=== PATIENT | female | born 1975 | race Caucasian/White ===

== ENCOUNTER 2018-10-01 06:11 | Emergency (ER) | payer MEDICAID ==
[~2018-10-01] VITALS: Ht 162.6 cm; Wt 58.2 kg
[2018-10-01] MEDS ORDERED: morphine 4 MG/ML inj SYRINge IV PRN (06:25)
[2018-10-01] MEDS ORDERED: ondansetron/PF 4mg/2ml inj IV ONE (06:25)
[2018-10-01 06:58] LABS: BASOPHILS % (AUTO) 0.6 % (0-1); EOSINOPHILS # (AUTO) 0.1 X10'3 (0-0.9); EOSINOPHILS % (AUTO) 2.4 % (0-6); HEMATOCRIT 44.1 % (35.0-45.0); HEMOGLOBIN 14.4 g/dl (12.0-16.0); LYMPHOCYTES # (AUTO) 1.4 X10'3 (1.1-4.8); LYMPHOCYTES % (AUTO) 38.7 % (21-51); MEAN CORPUSCULAR HEMOGLOBIN 29.6 PG (27.0-31.0); MEAN CORPUSCULAR HGB CONC 32.7 g/dL (33.0-36.5); MEAN CORPUSCULAR VOLUME 90.5 FL (78-98); MEAN PLATELET VOLUME 8.3 FL (7.4-10.4); MONOCYTES # (AUTO) 0.2 X10'3 (0-0.9); MONOCYTES % (AUTO) 5.4 % (2-12); NEUTROPHILS # (AUTO) 1.9 X10'3 (1.8-7.7); NEUTROPHILS % (AUTO) 52.9 % (42-75); PLATELET COUNT 222 X10'3 (140-440); RED BLOOD COUNT 4.87 X10'6 (4.20-5.60); WHITE BLOOD COUNT 3.6 X10'3 (4.5-11.0)
[2018-10-01 06:59] LABS: ALANINE AMINOTRANSFERASE 33 U/L (12-78); ALBUMIN 3.7 G/DL (3.4-5.0); ALKALINE PHOSPHATASE 93 IU/L (46-116); ANION GAP 9 (8-16); ASPARTATE AMINO TRANSFERASE 36 U/L (10-37); BILIRUBIN,TOTAL 0.4 MG/DL (0.1-1.0); BLOOD UREA NITROGEN 12 MG/DL (7-18); BUN/CREATININE RATIO 15.6 (6.6-38.0); CALCIUM 9.2 MG/DL (8.5-10.1); CHLORIDE 108 MMOL/L (99-107); CREATININE 0.77 MG/DL (0.40-0.90); GLUCOSE 69 MG/DL (70-104); LIPASE 62 U/L (73-393); POTASSIUM 4.4 MMOL/L (3.5-5.1); SODIUM 146 MMOL/L (135-145); TOTAL CARBON DIOXIDE 29.3 MMOL/L (24-32); TOTAL PROTEIN 7.5 G/DL (6.4-8.2); eGFR 81 ML/MIN
[2018-10-01] MEDS ORDERED: iohexol 350MG/ML 100ml bottle IV ONE (07:11)
[2018-10-01] MEDS ORDERED: normal saline 1000ml 1,000 ML IV ONE (07:25)
--- NOTE | 2018-10-01 08:21 | NUR ---
MD AWARE OF LOW BP AND LOW HEART RATE.
[2018-10-01] MEDS ORDERED: MAGN296S50 PO (09:43)
[2018-10-01 09:45] VITALS: BP 101/67
== END 2018-10-01 09:51 | disposition home or self-care (01) ==
LOC: ER 06:12
DX: R10.12 Left upper quadrant pain (principal); K59.00 Constipation, unspecified; Z90.49 Acquired absence of other specified parts of digestive tract; Z90.710 Acquired absence of both cervix and uterus; Z98.84 Bariatric surgery status; Z88.2 Allergy status to sulfonamides; Z79.899 Other long term (current) drug therapy
CPT/HCPCS: 36415; 71275; 74174; 80053; 83690; 85025; 96374; 96375; 99284; J2270; J2405; J7030; Q9967

== ENCOUNTER 2018-11-01 07:41 | Emergency (ER) | payer MEDICAID ==
[~2018-11-01] VITALS: Ht 162.6 cm; Wt 58.2 kg
[~2018-11-01 07:41] MED LIST: MAGN296S50 PO
[2018-11-01 07:49] VITALS: BP 98/61
== END 2018-11-01 09:06 | disposition home or self-care (01) ==
LOC: ER 07:42
DX: E16.2 Hypoglycemia, unspecified (principal); Z86.73 Personal history of transient ischemic attack (TIA), and cerebral infarction without residual deficits; Z90.49 Acquired absence of other specified parts of digestive tract; Z98.890 Other specified postprocedural states; Z90.710 Acquired absence of both cervix and uterus; Z98.84 Bariatric surgery status; Z88.2 Allergy status to sulfonamides
CPT/HCPCS: 82948; 99282

== ENCOUNTER 2019-02-16 12:23 | Emergency (ER) | payer MEDICAID ==
[~2019-02-16] VITALS: Ht 162.6 cm; Wt 60.9 kg
[2019-02-16 13:08] VITALS: BP 103/67
[2019-02-16] MEDS ORDERED: AZIT250T83 PO (13:16)
== END 2019-02-16 13:34 | disposition home or self-care (01) ==
LOC: ER 12:23
DX: J32.9 Chronic sinusitis, unspecified (principal); Z90.49 Acquired absence of other specified parts of digestive tract; Z90.710 Acquired absence of both cervix and uterus; Z98.890 Other specified postprocedural states; Z86.73 Personal history of transient ischemic attack (TIA), and cerebral infarction without residual deficits; Z98.84 Bariatric surgery status; Z88.2 Allergy status to sulfonamides; Z79.899 Other long term (current) drug therapy
CPT/HCPCS: 99283

== ENCOUNTER 2019-04-02 09:38 | Emergency (ER) | payer MEDICAID ==
[~2019-04-02] VITALS: Ht 162.6 cm; Wt 50.0 kg
[~2019-04-02 09:38] MED LIST changes: -MAGN296S50 PO; +MAGN296S70 PO
[2019-04-02 09:42] VITALS: BP 107/72
== END 2019-04-02 10:37 | disposition home or self-care (01) ==
LOC: ER 09:38
DX: R19.7 Diarrhea, unspecified (principal); Z86.73 Personal history of transient ischemic attack (TIA), and cerebral infarction without residual deficits; Z90.49 Acquired absence of other specified parts of digestive tract; Z90.710 Acquired absence of both cervix and uterus; Z98.84 Bariatric surgery status; Z88.2 Allergy status to sulfonamides
CPT/HCPCS: 99281

== ENCOUNTER 2019-04-17 11:15 | Emergency (ER) | payer MEDICAID ==
[~2019-04-17] VITALS: Ht 162.6 cm; Wt 63.4 kg
[2019-04-17] MEDS ORDERED: ondansetron/PF 4mg/2ml inj IV ONE (12:15)
[2019-04-17] MEDS ORDERED: normal saline 1000ML IV soln IVB ONE (12:15)
[2019-04-17 12:36] LABS: BASOPHILS % (AUTO) 0.2 % (0-1); EOSINOPHILS % (AUTO) 0.1 % (0-6); HEMATOCRIT 41.5 % (35.0-45.0); HEMOGLOBIN 13.9 g/dl (12.0-16.0); LYMPHOCYTES # (AUTO) 0.5 X10'3 (1.1-4.8); LYMPHOCYTES % (AUTO) 4.9 % (21-51); MEAN CORPUSCULAR HEMOGLOBIN 30.1 PG (27.0-31.0); MEAN CORPUSCULAR HGB CONC 33.4 g/dL (33.0-36.5); MEAN PLATELET VOLUME 8.7 FL (7.4-10.4); MONOCYTES # (AUTO) 0.5 X10'3 (0-0.9); MONOCYTES % (AUTO) 5.5 % (2-12); NEUTROPHILS # (AUTO) 8.9 X10'3 (1.8-7.7); NEUTROPHILS % (AUTO) 89.3 % (42-75); PLATELET COUNT 195 X10'3 (140-440); RED BLOOD COUNT 4.61 X10'6 (4.20-5.60); RED CELL DISTRIBUTION WIDTH 13.8 % (11.5-14.5); WHITE BLOOD COUNT 9.9 X10'3 (4.5-11.0)
[2019-04-17 12:51] LABS: ALBUMIN 3.5 G/DL (3.4-5.0); ANION GAP 6 (8-16); BILIRUBIN,TOTAL 0.4 MG/DL (0.1-1.0); BLOOD UREA NITROGEN 19 MG/DL (7-18); BUN/CREATININE RATIO 19.2 (6.6-38.0); CALCIUM 9.6 MG/DL (8.5-10.1); CHLORIDE 108 MMOL/L (99-107); CREATININE 0.99 MG/DL (0.40-0.90); GLUCOSE 167 MG/DL (70-104); POTASSIUM 4.3 MMOL/L (3.5-5.1); SODIUM 143 MMOL/L (135-145); TOTAL PROTEIN 6.7 G/DL (6.4-8.2); eGFR 60 ML/MIN
[2019-04-17 12:52] LABS: ALANINE AMINOTRANSFERASE 19 U/L (12-78); ALBUMIN/GLOBULIN RATIO 1.1 (1.1-1.5); ALKALINE PHOSPHATASE 66 IU/L (46-116); ASPARTATE AMINO TRANSFERASE 21 U/L (10-37); LIPASE 72 U/L (73-393)
[2019-04-17] MEDS: morphine 4 MG/ML inj SYRINge IV PRN ×2 (13:08→15:09)
[2019-04-17 13:43] VITALS: BP 102/48
[2019-04-17] MEDS ORDERED: acetaminophen 325mg tablet PO ONE (14:55)
== END 2019-04-17 15:37 | disposition home or self-care (01) ==
LOC: ER 11:16
DX: R19.7 Diarrhea, unspecified (principal); R11.0 Nausea; M79.10 Myalgia, unspecified site; F31.9 Bipolar disorder, unspecified; Z90.49 Acquired absence of other specified parts of digestive tract; Z90.710 Acquired absence of both cervix and uterus; Z98.890 Other specified postprocedural states; Z98.0 Intestinal bypass and anastomosis status; Z86.73 Personal history of transient ischemic attack (TIA), and cerebral infarction without residual deficits; Z88.2 Allergy status to sulfonamides; Z79.899 Other long term (current) drug therapy
CPT/HCPCS: 36415; 80053; 82948; 83690; 85025; 96361; 96374; 96375; 96376; 99284; J2270; J2405; J7030

== ENCOUNTER 2019-07-18 18:55 | Emergency (ER) | payer MEDICAID ==
[~2019-07-18] VITALS: Ht 162.6 cm; Wt 63.8 kg
[2019-07-18 19:19] VITALS: BP 101/67
== END 2019-07-18 21:42 | disposition left against medical advice (07) ==
LOC: ER 18:56
DX: R10.9 Unspecified abdominal pain (principal); R11.0 Nausea; Z53.21 Procedure and treatment not carried out due to patient leaving prior to being seen by health care provider

== ENCOUNTER 2019-12-30 16:29 | Emergency (ER) | payer MEDICAID ==
[~2019-12-30] VITALS: Ht 162.6 cm; Wt 62.7 kg
[2019-12-30 17:59] LABS: BASOPHILS % (AUTO) 0.6 % (0-1); EOSINOPHILS % (AUTO) 0.6 % (0-6); HEMATOCRIT 35.6 % (35.0-45.0); HEMOGLOBIN 12.1 g/dl (12.0-16.0); LYMPHOCYTES # (AUTO) 0.9 X10'3 (1.1-4.8); LYMPHOCYTES % (AUTO) 15.1 % (21-51); MEAN CORPUSCULAR HEMOGLOBIN 30.4 PG (27.0-31.0); MEAN CORPUSCULAR HGB CONC 33.9 g/dL (33.0-36.5); MEAN CORPUSCULAR VOLUME 89.7 FL (78-98); MEAN PLATELET VOLUME 8.1 FL (7.4-10.4); MONOCYTES # (AUTO) 0.2 X10'3 (0-0.9); NEUTROPHILS # (AUTO) 4.9 X10'3 (1.8-7.7); NEUTROPHILS % (AUTO) 79.7 % (42-75); PLATELET COUNT 255 X10'3 (140-440); RED BLOOD COUNT 3.97 X10'6 (4.20-5.60); RED CELL DISTRIBUTION WIDTH 13.3 % (11.5-14.5); WHITE BLOOD COUNT 6.1 X10'3 (4.5-11.0)
[2019-12-30] MEDS ORDERED: ondansetron/PF 4mg/2ml inj IV ONE (18:05)
[2019-12-30] MEDS ORDERED: morphine 10mg/ml inj. IV ONE (18:05)
[2019-12-30] MEDS ORDERED: normal saline 1000ml 1,000 ML IV ONE (18:05)
[2019-12-30 18:15] LABS: ALANINE AMINOTRANSFERASE 12 U/L (12-78); ALBUMIN/GLOBULIN RATIO 0.9 (1.1-1.5); ALKALINE PHOSPHATASE 75 IU/L (46-116); ANION GAP 6 (8-16); ASPARTATE AMINO TRANSFERASE 17 U/L (10-37); BILIRUBIN,TOTAL 0.3 MG/DL (0.1-1.0); BLOOD UREA NITROGEN 16 MG/DL (7-18); BUN/CREATININE RATIO 15.1 (6.6-38.0); CALCIUM 8.6 MG/DL (8.5-10.1); CHLORIDE 106 MMOL/L (99-107); CREATININE 1.06 MG/DL (0.40-0.90); GLUCOSE 188 MG/DL (70-104); LIPASE 180 U/L (73-393); SODIUM 138 MMOL/L (135-145); TOTAL PROTEIN 6.4 G/DL (6.4-8.2); eGFR 56 ML/MIN
--- NOTE | 2019-12-30 18:35 | NUR ---
Patient resting in bed, states pain was 10/10 before Morphine, now after is 3/10. Pt states she has not had a bowel movement in over 4 days and is having chest pressure she believes is from the pressure of her abdomen pushing up. NS running and Harriet medicated Pt.
[2019-12-30 18:44] LABS: HCG SERUM QL NEGATIVE
[2019-12-30] MEDS ORDERED: iohexol 300mg/ml 100ml inj. ONE (18:52)
--- NOTE | 2019-12-30 19:07 | NUR ---
PT to CT
--- NOTE | 2019-12-30 19:42 | NUR ---
Pt back from CT, ambulated safely to restroom and states pain is up dora 06/23. Dr. Stone notified.
[2019-12-30] MEDS ORDERED: PEG1POWD PO (21:04)
[2019-12-30 21:17] VITALS: BP 97/62
== END 2019-12-30 21:12 | disposition home or self-care (01) ==
LOC: ER 16:29
DX: K59.00 Constipation, unspecified (principal); R10.84 Generalized abdominal pain; R07.89 Other chest pain; F31.9 Bipolar disorder, unspecified; Z86.73 Personal history of transient ischemic attack (TIA), and cerebral infarction without residual deficits; Z90.89 Acquired absence of other organs; Z90.49 Acquired absence of other specified parts of digestive tract; Z90.710 Acquired absence of both cervix and uterus; Z98.890 Other specified postprocedural states; Z88.2 Allergy status to sulfonamides; Z79.899 Other long term (current) drug therapy
CPT/HCPCS: 36415; 71045; 74177; 80053; 83690; 84484; 84703; 85025; 93005; 96361; 96374; 96375; 99285; J2270; J2405; J7030; Q9967

== ENCOUNTER 2020-04-29 03:39 | Emergency (ER) | payer MEDICAID ==
[~2020-04-29] VITALS: Ht 162.6 cm; Wt 64.0 kg
[~2020-04-29 03:39] MED LIST changes: +PEG1POWD PO
[2020-04-29] MEDS ORDERED: normal saline 1000ML IV soln IVB ONE (04:20)
[2020-04-29] MEDS ORDERED: ondansetron/PF 4mg/2ml inj IV ONE (04:20)
[2020-04-29 04:37] LABS: ALANINE AMINOTRANSFERASE 19 U/L (12-78); ALBUMIN 2.9 G/DL (3.4-5.0); ALBUMIN/GLOBULIN RATIO 0.9 (1.1-1.5); ALKALINE PHOSPHATASE 88 IU/L (46-116); ANION GAP 10 (8-16); ASPARTATE AMINO TRANSFERASE 18 U/L (10-37); BASOPHILS % (AUTO) 1.1 % (0-1); BILIRUBIN,TOTAL 0.1 MG/DL (0.1-1.0); BLOOD UREA NITROGEN 15 MG/DL (7-18); BUN/CREATININE RATIO 15.3 (6.6-38.0); CALCIUM 8.7 MG/DL (8.5-10.1); CHLORIDE 110 MMOL/L (99-107); CREATININE 0.98 MG/DL (0.40-0.90); EOSINOPHILS # (AUTO) 0.1 X10'3 (0-0.9); EOSINOPHILS % (AUTO) 3.1 % (0-6); GLUCOSE 132 MG/DL (70-104); HEMATOCRIT 28.5 % (35.0-45.0); HEMOGLOBIN 8.5 g/dl (12.0-16.0); LIPASE 86 U/L (73-393); LYMPHOCYTES # (AUTO) 1.5 X10'3 (1.1-4.8); LYMPHOCYTES % (AUTO) 33.3 % (21-51); MEAN CORPUSCULAR HEMOGLOBIN 21.4 PG (27.0-31.0); MEAN CORPUSCULAR HGB CONC 29.9 g/dL (33.0-36.5); MEAN CORPUSCULAR VOLUME 71.5 FL (78-98); MEAN PLATELET VOLUME 8.6 FL (7.4-10.4); MONOCYTES # (AUTO) 0.3 X10'3 (0-0.9); MONOCYTES % (AUTO) 6.6 % (2-12); NEUTROPHILS # (AUTO) 2.5 X10'3 (1.8-7.7); NEUTROPHILS % (AUTO) 55.9 % (42-75); PLATELET COUNT 198 X10'3 (140-440); POTASSIUM 3.8 MMOL/L (3.5-5.1); RED BLOOD COUNT 3.99 X10'6 (4.20-5.60); RED CELL DISTRIBUTION WIDTH 17.5 % (11.5-14.5); SODIUM 144 MMOL/L (135-145); TOTAL CARBON DIOXIDE 24.1 MMOL/L (24-32); TOTAL PROTEIN 6.2 G/DL (6.4-8.2); WHITE BLOOD COUNT 4.4 X10'3 (4.5-11.0); eGFR 61 ML/MIN
[2020-04-29] MEDS ORDERED: ONDA4TAB6 PO (05:16)
[2020-04-29 05:38] VITALS: BP 108/69
== END 2020-04-29 05:42 | disposition home or self-care (01) ==
LOC: ER 03:39
DX: R10.32 Left lower quadrant pain (principal); F31.9 Bipolar disorder, unspecified; Z86.73 Personal history of transient ischemic attack (TIA), and cerebral infarction without residual deficits; Z90.89 Acquired absence of other organs; Z90.49 Acquired absence of other specified parts of digestive tract; Z90.710 Acquired absence of both cervix and uterus; Z98.890 Other specified postprocedural states; Z88.2 Allergy status to sulfonamides; Z79.899 Other long term (current) drug therapy
CPT/HCPCS: 36415; 80053; 83690; 85025; 93005; 96374; 99284; J2405; J7030; 96361

== ENCOUNTER 2020-07-03 05:00 | Emergency (ER) | payer MEDICAID ==
[~2020-07-03] VITALS: Ht 162.6 cm; Wt 65.0 kg
[~2020-07-03 05:00] MED LIST changes: +ONDA4TAB6 PO
[2020-07-03 06:03] LABS: CLARITY,URINE CLEAR (Clear); COLOR,URINE STRAW (Yellow); GLUCOSE, URINE NEGATIVE (Neg); KETONES,URINE NEGATIVE (Neg); LEUKOCYTE ESTERASE ,URINE NEGATIVE (Neg); NITRITES, URINE NEGATIVE (Neg); OCCULT BLOOD,URINE NEGATIVE (Neg); PH,URINE 6.5 (4.8-8.0); PROTEIN,URINE NEGATIVE (Neg); UROBILINOGEN,URINE 0.2 E.U/dL (0.2-1.0)
[2020-07-03 06:20] VITALS: BP 94/66
[2020-07-03 06:22] LABS: UA COLLECTION TYPE CLN CATCH MIDSTREAM
== END 2020-07-03 06:58 | disposition home or self-care (01) ==
LOC: ER 05:01
DX: R10.9 Unspecified abdominal pain (principal); M54.5 Low back pain; R11.0 Nausea; R30.0 Dysuria; K59.00 Constipation, unspecified; F31.9 Bipolar disorder, unspecified; Z90.49 Acquired absence of other specified parts of digestive tract; Z90.710 Acquired absence of both cervix and uterus; Z98.890 Other specified postprocedural states; Z86.73 Personal history of transient ischemic attack (TIA), and cerebral infarction without residual deficits
CPT/HCPCS: 81003; 99283

== ENCOUNTER 2023-01-12 15:51 | Emergency (ER) | payer MEDICAID ==
[~2023-01-12] VITALS: Ht 162.6 cm; Wt 81.6 kg
[~2023-01-12 15:51] MED LIST changes: +APIX5TAB3 PO; -MAGN296S70 PO; +MAGN296S89 PO
[2023-01-12 15:54] VITALS: BP 135/75; PULSE 100; RESP 16; TEMP 97.9; O2SAT 99
== END 2023-01-13 00:27 | disposition left against medical advice (07) ==
LOC: ER 15:52
DX: M25.571 Pain in right ankle and joints of right foot (principal); M25.572 Pain in left ankle and joints of left foot; Z53.21 Procedure and treatment not carried out due to patient leaving prior to being seen by health care provider
CPT/HCPCS: 99281